=== PATIENT | male | born 1960 | race Caucasian/White ===

== ENCOUNTER 2020-04-11 22:30 | Inpatient (IN) | payer MEDICAID, SELFPAY ==
[2020-04-11 22:44] VITALS: BP 144/87; PULSE 107; RESP 18; TEMP 37.2; O2SAT 99; BMI 27.2
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
--- NOTE | 2020-04-11 23:37 | PC.NURSE ---
Patricia from lab at bedside attempting to get blood for analysis. Pt is very difficult venipuncture due to IV drug use. Both arms with scarring.
[2020-04-12] VITALS (14 sets, daily range): BP systolic 125–153; BP diastolic 67–98; PULSE 70–87; RESP 16–20; TEMP 36.3–37.3; O2SAT 93–97; BMI 31.8
[2020-04-12 00:04] LABS: D Dimer 455 ng/mL (<230)
[2020-04-12 00:05] LABS: Lactate (Lactic Acid) 1.9 mmol/L (0.7-2.1)
[2020-04-12 00:06] LABS: Add Manual Diff / Slide Review NO; Alanine Aminotransferase 20 IU/L (<50); Albumin 3.7 g/dL (3.5-5.0); Alkaline Phosphatase 101 U/L (38-126); Aspartate Aminotransferase 23 IU/L (17-59); Basophils Absolute Auto 100 /uL (0-100); Basophils Percent Auto 1.1 % (0-2); Bilirubin Total 0.1 mg/dL (0.2-1.3); Blood Urea Nitrogen 16 mg/dL (9-20); Calcium 8.9 mg/dL (8.4-10.2); Carbon Dioxide 32 mmol/L (22-32); Chloride 103 mmol/L (98-107); Eosinophils Absolute Auto 200 /uL (0-450); Eosinophils Percent Auto 1.9 % (2-4); Estimated Glomerular Filt Rate > 60.0 mL/min (>60); Globulin 3.6 g/dL (1.7-4.1); Glucose 165 mg/dL (70-100); HEMOLYSIS < 15 (0-50); Hematocrit 33.6 % (41-53); Hemoglobin 10.7 g/dL (13.5-17.5); Lymphocytes Absolute Auto 2100 /uL (1100-4500); Lymphocytes Percent Auto 17.3 % (25-40); Mean Corpuscular HGB Conc 31.9 % (30-36); Mean Corpuscular Hemoglobin 25.3 PG (26-34); Mean Corpuscular Volume 79.3 fL (80-100); Monocytes Absolute Auto 1400 /uL (0-900); Monocytes Percent Auto 11.5 % (3-14); Neutrophils Absolute Auto 8500 /uL (1500-7000); Neutrophils Percent Auto 68.2 % (50-75); Platelet Count 399 X10^3/uL (150-400); Potassium 3.7 mmol/L (3.4-5.1); Red Blood Cell Count 4.24 X10^6/uL (4.5-5.9); Red Cell Distribution Width 16.1 % (11.6-14.8); Sodium 137 mmol/L (137-145); Total Protein 7.3 g/dL (6.3-8.2); White Blood Cell Count 12.4 X10^3/uL (4.5-11.0)
[2020-04-12 00:22] LABS: Procalcitonin 0.22 ng/mL (<0.5)
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
[2020-04-12 03:03] LABS: C-Reactive Protein Quant 2.8 mg/dL (<1.0); Creatine Kinase 87 U/L (55-170)
[2020-04-12 03:18] LABS: Erythrocyte Sedimentation Rate 33 MM/HR (0-15)
[2020-04-12 03:42] LABS: COVID19 -Nasal RAPID Negative (Negative)
[2020-04-12] MEDS: SODIUM CHLORIDE 0.9% 1,000 ML 1000 ML IV (04:44)
[2020-04-12] MEDS: LACTATED RINGERS 1,000 ML 100 ML IV (05:31)
[2020-04-12] MEDS: LORazepam 2 MG/ML INJ 1 MG IV ×2 (05:36→20:00)
[2020-04-12 07:14] LABS: Add Manual Diff / Slide Review NO; Basophils Absolute Auto 100 /uL (0-100); Basophils Percent Auto 1.1 % (0-2); Eosinophils Absolute Auto 400 /uL (0-450); Eosinophils Percent Auto 2.7 % (2-4); Hematocrit 32.1 % (41-53); Hemoglobin 10.5 g/dL (13.5-17.5); Lymphocytes Absolute Auto 2700 /uL (1100-4500); Lymphocytes Percent Auto 19.9 % (25-40); Mean Corpuscular HGB Conc 32.8 % (30-36); Mean Corpuscular Hemoglobin 25.9 PG (26-34); Monocytes Absolute Auto 1600 /uL (0-900); Monocytes Percent Auto 11.5 % (3-14); Neutrophils Absolute Auto 8900 /uL (1500-7000); Neutrophils Percent Auto 64.8 % (50-75); Platelet Count 419 X10^3/uL (150-400); Red Blood Cell Count 4.07 X10^6/uL (4.5-5.9); Red Cell Distribution Width 16.4 % (11.6-14.8); White Blood Cell Count 13.7 X10^3/uL (4.5-11.0)
[2020-04-12 07:19] LABS: Prothrombin Time 11.8 SECONDS (10.1-12.7)
[2020-04-12 07:23] LABS: Alanine Aminotransferase 19 IU/L (<50); Albumin 3.2 g/dL (3.5-5.0); Alkaline Phosphatase 89 U/L (38-126); Aspartate Aminotransferase 24 IU/L (17-59); Bilirubin Total 0.1 mg/dL (0.2-1.3); Bilirubin Unconjugated 0.1 mg/dL (0.0-1.1); Globulin 3.2 g/dL (1.7-4.1); HEMOLYSIS < 15 (0-50); Total Protein 6.4 g/dL (6.3-8.2)
[2020-04-12 07:24] LABS: BUN Creatinine Ratio 18.8 (6-22); Blood Urea Nitrogen 12 mg/dL (9-20); Calcium 8.4 mg/dL (8.4-10.2); Carbon Dioxide 29 mmol/L (22-32); Chloride 105 mmol/L (98-107); Estimated Glomerular Filt Rate > 60.0 mL/min (>60); Glucose 111 mg/dL (70-100); HEMOLYSIS < 15 (0-50); Potassium 3.8 mmol/L (3.4-5.1); Sodium 136 mmol/L (137-145)
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
[2020-04-12 07:40] LABS: Procalcitonin 0.21 ng/mL (<0.5)
--- NOTE | 2020-04-12 07:51 | PC.NURSE ---
Pt measurements of extremities are as follows: Left ankle 25 cm Right ankle 26 cm 1 cm difference Left mid calf 42 cm Right mid calf 41 cm (-1) cm difference L wrist 21 cm R wrist 23 cm 2 cm difference L mid forearm 29 cm R mid forearm 38 cm 9 cm difference L mid bicep 31 cm R mid bicep 37 cm 6 cm difference RUE fingers are cold to touch, LUE fingers warmer to touch. Significant edema to RUE.
[2020-04-12 08:07] LABS: HIV 1 & 2 Ab/Ag 4th Gen Combo NEGATIVE (NEGATIVE)
[2020-04-12] MEDS: VANCOMYCIN 2,000 MG/400 ML PIGGYBACK 200 MG IV (08:10)
[2020-04-12 08:28] LABS: NT-proBNP (BNP-Adult 18+) 175 pg/mL (<125)
--- NOTE | 2020-04-12 09:59 | PC.NURSE ---
Day shift: Pt sleeping in bed after breakfast. Did not awaken to voice. Talked to Dr Carrington about Pt's 2 morning meds and said ok to let Pt sleep. Plan is to wake Pt for lunch or wake up around noon. Will give those meds at that time. No s/s of pain or discomfort. HR 85 per tele. Bed alarm is on. Call light in reach. IV fluids infusing per MAR. Pt did well with eating breakfast this AM.
[2020-04-12] MEDS: METOPROLOL ER 50 MG TABLET PO (10:38)
[2020-04-12] MEDS: ENOXAPARIN 40 MG/0.4 ML SYRINGE SUBCUT (10:38)
--- NOTE | 2020-04-12 10:44 | PC.NURSE ---
Day shift: Pt awake to void and was given PO Metoprolol and the Lovenox injection (at 1040). Tolerated both well.
--- NOTE | 2020-04-12 10:48 | PC.NURSE ---
Day shift: Pt back in bed w/ no c/o pain or discomfort. He his asleep now. Call light in reach and bed alarm is on.
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
[2020-04-12 10:55] LABS: Bacteria Urine None Seen; RBC Urine None Seen (0-5/HPF); WBC Urine None Seen (0-5/HPF)
[2020-04-12 11:17] LABS: Appearance Urine UA CLEAR; Bilirubin Urine UA NEGATIVE (NEGATIVE); Color Urine UA YELLOW; Glucose Urine UA NEGATIVE (Negative); Ketones Urine UA NEGATIVE (NEGATIVE); Leukocyte Esterase Urine UA NEGATIVE (NEGATIVE); Nitrite Urine UA NEGATIVE (Negative); Occult Blood Urine UA NEGATIVE (Negative); Protein Urine UA NEGATIVE (Negative); Specific Gravity Urine UA <=1.005 (1.000-1.035); Urobilinogen Urine UA 0.2 E.U./dL (0.2); pH Urine UA 6.5 (4.5-8.0)
[2020-04-12 11:28] LABS: Culture Indicated Urine Cult Not Indicated; Urine Comments Microscopic Normal
--- NOTE | 2020-04-12 16:09 | CM.DANOTE ---
DCP/Brief: Unable to do GRAPHIC PRODUCTION ARTIST consult/assessment today. RN and provider report that patient has been sleeping all day. Unable to easily arouse for assessment. Patient is a 60yr old male admitted to [facility] with right swollen arm. Provider notes indicate that swelling do to IVDU. PCP listed is David Yip. Primary payor 1)Commercial? 2)Medicaid. Patient with h/o active heroin use. Per reports patient had heroin on him when admitted. Nursing supervisor sewer maintenance indicates that heroin removed and placed in safe location. Patient unable to assess today due to sleepiness. Spoke with afternoon RN whom reports that the only medication given to patient was at 5:00AM today. Patient administered 1mg of Ativan. GRAPHIC PRODUCTION ARTIST suggested no visitors until appropriate assessment with patient can occur? Patient high risk for using while hospitalized and has high potential to leave AMA. GRAPHIC PRODUCTION ARTIST discussed with provider. No decision made at this time on potential heroin withdrawal measures. P: Pending. RENETTA Clark Discharge Planning/Care Management CM Discharge Assessment Start: 04/12/20 16:06 Freq: Status: Active Protocol: Document 04/12/20 16:06 KJS (Rec: 04/12/20 16:09 KJS [id number]) Discharge Planning Assessment Assigned Surgical Instrument Technician RENETTA Clark Contact Information Unknown Advance Directives? No History Provided By Medical Record Prior Living Arrangements House Household Members friend(s) Independent with ADL's Yes Is patient alert and oriented? No: Unable to assess today. Comment Unknown at this time. Review Status In Process Next Review Type Continued Stay Review
[2020-04-12] MEDS: VANCOMYCIN 1,500 MG/300 ML PIGGYBACK 200 MG IV (16:14)
--- NOTE | 2020-04-12 16:41 | P.PN_ITS ---
Subjective Subjective Date Patient Seen: 04/12/20 Time Patient Seen: 16:41 Exam Vital Signs (past 8 hours): - 04/12/20 10:04 04/12/20 10:38 04/12/20 11:13 Temperature Pulse Rate 85 85 75 Respiratory Rate Blood Pressure Pulse Oximetry 96 04/12/20 11:56 04/12/20 13:17 Temperature 97.8 F Pulse Rate 80 Respiratory Rate 20 Blood Pressure 128/67 Pulse Oximetry 95 96 Oxygen Delivery Method Room Air Oxygen Flow Rate 0 Objective Labs Result Diagrams: 04/12/20 06:50 04/12/20 06:50 Labs: Laboratory Results - last 24 hr 04/11/20 04/11/20 04/11/20 23:45 23:45 23:45 WBC 12.4 H RBC 4.24 L Hgb 10.7 L Hct 33.6 L MCV 79.3 L MCH 25.3 L MCHC 31.9 RDW 16.1 H Plt Count 399 Neut % (Auto) 68.2 Lymph % (Auto) 17.3 L [place] % (Auto) 11.5 Eos % (Auto) 1.9 L Baso % (Auto) 1.1 Neut # (Auto) 8500 H Lymph # (Auto) 2100 [place] # (Auto) 1400 H Eos # (Auto) 200 Baso # (Auto) 100 ESR PT INR D-Dimer Sodium 137 Potassium 3.7 Chloride 103 Carbon Dioxide 32 BUN 16 Creatinine 0.80 Estimated GFR > 60.0 BUN/Creatinine Ratio 20.0 Glucose 165 H Lactate 1.9 Calcium 8.9 Total Bilirubin 0.1 L Conjugated Bilirubin Unconjugated Bilirubin AST 23 ALT 20 Alkaline Phosphatase 101 Total Creatine Kinase C-Reactive Protein NT-Pro-B Natriuret Pep Total Protein 7.3 Albumin 3.7 Globulin 3.6 Albumin/Globulin Ratio 1.0 Procalcitonin 0.22 Urine Color Urine Appearance Urine pH Ur Specific [place] Urine Protein Urine Glucose (UA) Urine Ketones Urine Occult Blood Urine Nitrate Urine Bilirubin Urine Urobilinogen Ur Leukocyte Esterase Urine RBC Urine WBC Urine Bacteria Ur Culture Indicated? Micro UA Comment SARS-CoV-2 (PCR) HIV 1&2 Ab/P24 Ag 4thGn 04/11/20 04/11/20 04/11/20 23:45 23:45 23:45 WBC RBC Hgb Hct MCV MCH MCHC RDW Plt Count Neut % (Auto) Lymph % (Auto) [place] % (Auto) Eos % (Auto) Baso % (Auto) Neut # (Auto) Lymph # (Auto) [place] # (Auto) Eos # (Auto) Baso # (Auto) ESR 33 H PT INR D-Dimer 455 H Sodium Potassium Chloride Carbon Dioxide BUN Creatinine Estimated GFR BUN/Creatinine Ratio Glucose Lactate Calcium Total Bilirubin Conjugated Bilirubin Unconjugated Bilirubin AST ALT Alkaline Phosphatase Total Creatine Kinase 87 C-Reactive Protein 2.8 H NT-Pro-B Natriuret Pep Total Protein Albumin Globulin Albumin/Globulin Ratio Procalcitonin Urine Color Urine Appearance Urine pH Ur Specific [place] Urine Protein Urine Glucose (UA) Urine Ketones Urine Occult Blood Urine Nitrate Urine Bilirubin Urine Urobilinogen Ur Leukocyte Esterase Urine RBC Urine WBC Urine Bacteria Ur Culture Indicated? Micro UA Comment SARS-CoV-2 (PCR) HIV 1&2 Ab/P24 Ag 4thGn 04/12/20 04/12/20 04/12/20 03:19 06:50 06:50 WBC 13.7 H RBC 4.07 L Hgb 10.5 L Hct 32.1 L MCV 79.0 L MCH 25.9 L MCHC 32.8 RDW 16.4 H Plt Count 419 H Neut % (Auto) 64.8 Lymph % (Auto) 19.9 L [place] % (Auto) 11.5 Eos % (Auto) 2.7 Baso % (Auto) 1.1 Neut # (Auto) 8900 H Lymph # (Auto) 2700 [place] # (Auto) 1600 H Eos # (Auto) 400 Baso # (Auto) 100 ESR PT 11.8 INR 1.0 D-Dimer Sodium Potassium Chloride Carbon Dioxide BUN Creatinine Estimated GFR BUN/Creatinine Ratio Glucose Lactate Calcium Total Bilirubin Conjugated Bilirubin Unconjugated Bilirubin AST ALT Alkaline Phosphatase Total Creatine Kinase C-Reactive Protein NT-Pro-B Natriuret Pep Total Protein Albumin Globulin Albumin/Globulin Ratio Procalcitonin Urine Color Urine Appearance Urine pH Ur Specific [place] Urine Protein Urine Glucose (UA) Urine Ketones Urine Occult Blood Urine Nitrate Urine Bilirubin Urine Urobilinogen Ur Leukocyte Esterase Urine RBC Urine WBC Urine Bacteria Ur Culture Indicated? Micro UA Comment SARS-CoV-2 (PCR) Negative HIV 1&2 Ab/P24 Ag 4thGn 04/12/20 04/12/20 04/12/20 06:50 06:50 06:50 WBC RBC Hgb Hct MCV MCH MCHC RDW Plt Count Neut % (Auto) Lymph % (Auto) [place] % (Auto) Eos % (Auto) Baso % (Auto) Neut # (Auto) Lymph # (Auto) [place] # (Auto) Eos # (Auto) Baso # (Auto) ESR PT INR D-Dimer Sodium 136 L Potassium 3.8 Chloride 105 Carbon Dioxide 29 BUN 12 Creatinine 0.64 L Estimated GFR > 60.0 BUN/Creatinine Ratio 18.8 Glucose 111 H Lactate Calcium 8.4 Total Bilirubin 0.1 L Conjugated Bilirubin 0.0 Unconjugated Bilirubin 0.1 AST 24 ALT 19 Alkaline Phosphatase 89 Total Creatine Kinase C-Reactive Protein NT-Pro-B Natriuret Pep Total Protein 6.4 Albumin 3.2 L Globulin 3.2 Albumin/Globulin Ratio 1.0 Procalcitonin 0.21 Urine Color Urine Appearance Urine pH Ur Specific [place] Urine Protein Urine Glucose (UA) Urine Ketones Urine Occult Blood Urine Nitrate Urine Bilirubin Urine Urobilinogen Ur Leukocyte Esterase Urine RBC Urine WBC Urine Bacteria Ur Culture Indicated? Micro UA Comment SARS-CoV-2 (PCR) HIV 1&2 Ab/P24 Ag 4thGn Negative 04/12/20 04/12/20 06:50 10:42 WBC RBC Hgb Hct MCV MCH MCHC RDW Plt Count Neut % (Auto) Lymph % (Auto) [place] % (Auto) Eos % (Auto) Baso % (Auto) Neut # (Auto) Lymph # (Auto) [place] # (Auto) Eos # (Auto) Baso # (Auto) ESR PT INR D-Dimer Sodium Potassium Chloride Carbon Dioxide BUN Creatinine Estimated GFR BUN/Creatinine Ratio Glucose Lactate Calcium Total Bilirubin Conjugated Bilirubin Unconjugated Bilirubin AST ALT Alkaline Phosphatase Total Creatine Kinase C-Reactive Protein NT-Pro-B Natriuret Pep 175 H Total Protein Albumin Globulin Albumin/Globulin Ratio Procalcitonin Urine Color Yellow Urine Appearance Clear Urine pH 6.5 Ur Specific [place] <=1.005 Urine Protein Negative Urine Glucose (UA) Negative Urine Ketones Negative Urine Occult Blood Negative Urine Nitrate Negative Urine Bilirubin Negative Urine Urobilinogen 0.2 Ur Leukocyte Esterase Negative Urine RBC None seen Urine WBC None seen Urine Bacteria None seen Ur Culture Indicated? Cult not indicated Micro UA Comment Microscopic normal SARS-CoV-2 (PCR) HIV 1&2 Ab/P24 Ag 4thGn [facility] Medical History (Updated 04/12/20 @ 06:00 by KYLE Acevedo) Alcohol abuse Hypertension IVDU (intravenous drug user) Tobacco abuse Surgical History (Updated 04/12/20 @ 06:01 by CARLOS ALBERTO AcevedoXAVI) H/O knee surgery History of appendectomy Previous back surgery Family History (Updated 04/12/20 @ 06:02 by CARLOS ALBERTO AcevedoXAVI) Father Melanoma Mother Diabetes mellitus Social History household members: friend(s) Smoking Status: Current every day smoker alcohol intake: former
[2020-04-12] MEDS: ONDANSETRON 4 MG/2 ML INJ IV (20:00)
[2020-04-12] MEDS: METHADONE 10 MG TABLET 20 MG PO (20:43)
[2020-04-12] MEDS: SODIUM CHLORIDE 0.9% FLUSH 10 ML IV (20:44)
--- NOTE | 2020-04-12 20:45 | P.PN_ITS ---
Subjective Subjective Date Patient Seen: 04/12/20 Time Patient Seen: 16:41 Interval history: Colton Fletcher is a 60-year-old male with heroin abuse admitted with right upper extremity cellulitis. There is improvement in his swelling and overall pain today, however he used just prior to admission as predominantly sleepy throughout the day. He denies overt fevers, chills, chest pain, shortness of breath. He reports improvement in his pain. Exam Vital Signs (past 8 hours): - 04/12/20 13:17 04/12/20 16:45 04/12/20 17:00 Temperature 99.1 F Pulse Rate 82 Respiratory Rate 18 Blood Pressure 125/78 Pulse Oximetry 96 97 97 Oxygen Delivery Method Room Air Oxygen Flow Rate 0 Narrative Exam Narrative: General: Patient is a well-developed, moderately-nourished male in no distress at this time, patient is relaxed and resting quietly sling no signs and symptoms of withdrawal at this time. HEENT: Normocephalic, atraumatic, extraocular muscles intact, oral pharynx is clear and mucous membranes are moist. Neck is supple and symmetric, trachea is midline, no adenopathy, no thyroid enlargement, nontender, no masses palpated. Negative for JVD Chest: Normal AP diameter and contour without kyphoscoliosis, no nasal flaring, retractions, or tachypneic labored Lungs: Auscultation of all lung clarke are clear without adventitious sounds, wheezes, rhonchi, or rales. Cardio: S1 & S2 with regular rate and rhythm without murmur, rubs, or gallops, no carotid bruit, no cardiac pulsations present. Abdomen: Soft nontender, negative for organomegaly, or masses. Bowel sounds are present in all 4 quadrants without guarding or rebound, no CVA tenderness. Musculoskeletal: Muscle strength and tone are equal within normal limits, no deformity, crepitus, effusions, cyanosis, clubbing prsent. Full range of motion intact pedal pulses are normal. see skin. Skin: right arm:Normal range of motion, no clubbing. Neurovascularly intact. Patient has swelling of his right extremity in comparison to the left. bilateral track esparza. Mild warmth, erythema and a burn [place] on his RUE. Neuro: Alert and orientated x3, strength is +5/5 in all extremities, sensation to touch intact, no gross deficits noted of cranial nerves. Psych: Patient has a poorly kept disheveled appearance, appropriate affect, mental status attitude thought context and judgment are appropriate for age. Objective Labs Result Diagrams: 04/12/20 06:50 04/12/20 06:50 Labs: Laboratory Results - last 24 hr 04/11/20 04/11/20 04/11/20 23:45 23:45 23:45 WBC 12.4 H RBC 4.24 L Hgb 10.7 L Hct 33.6 L MCV 79.3 L MCH 25.3 L MCHC 31.9 RDW 16.1 H Plt Count 399 Neut % (Auto) 68.2 Lymph % (Auto) 17.3 L [place] % (Auto) 11.5 Eos % (Auto) 1.9 L Baso % (Auto) 1.1 Neut # (Auto) 8500 H Lymph # (Auto) 2100 [place] # (Auto) 1400 H Eos # (Auto) 200 Baso # (Auto) 100 ESR PT INR D-Dimer Sodium 137 Potassium 3.7 Chloride 103 Carbon Dioxide 32 BUN 16 Creatinine 0.80 Estimated GFR > 60.0 BUN/Creatinine Ratio 20.0 Glucose 165 H Lactate 1.9 Calcium 8.9 Total Bilirubin 0.1 L Conjugated Bilirubin Unconjugated Bilirubin AST 23 ALT 20 Alkaline Phosphatase 101 Total Creatine Kinase C-Reactive Protein NT-Pro-B Natriuret Pep Total Protein 7.3 Albumin 3.7 Globulin 3.6 Albumin/Globulin Ratio 1.0 Procalcitonin 0.22 Urine Color Urine Appearance Urine pH Ur Specific [place] Urine Protein Urine Glucose (UA) Urine Ketones Urine Occult Blood Urine Nitrate Urine Bilirubin Urine Urobilinogen Ur Leukocyte Esterase Urine RBC Urine WBC Urine Bacteria Ur Culture Indicated? Micro UA Comment SARS-CoV-2 (PCR) HIV 1&2 Ab/P24 Ag 4thGn 04/11/20 04/11/20 04/11/20 23:45 23:45 23:45 WBC RBC Hgb Hct MCV MCH MCHC RDW Plt Count Neut % (Auto) Lymph % (Auto) [place] % (Auto) Eos % (Auto) Baso % (Auto) Neut # (Auto) Lymph # (Auto) [place] # (Auto) Eos # (Auto) Baso # (Auto) ESR 33 H PT INR D-Dimer 455 H Sodium Potassium Chloride Carbon Dioxide BUN Creatinine Estimated GFR BUN/Creatinine Ratio Glucose Lactate Calcium Total Bilirubin Conjugated Bilirubin Unconjugated Bilirubin AST ALT Alkaline Phosphatase Total Creatine Kinase 87 C-Reactive Protein 2.8 H NT-Pro-B Natriuret Pep Total Protein Albumin Globulin Albumin/Globulin Ratio Procalcitonin Urine Color Urine Appearance Urine pH Ur Specific [place] Urine Protein Urine Glucose (UA) Urine Ketones Urine Occult Blood Urine Nitrate Urine Bilirubin Urine Urobilinogen Ur Leukocyte Esterase Urine RBC Urine WBC Urine Bacteria Ur Culture Indicated? Micro UA Comment SARS-CoV-2 (PCR) HIV 1&2 Ab/P24 Ag 4thGn 04/12/20 04/12/20 04/12/20 03:19 06:50 06:50 WBC 13.7 H RBC 4.07 L Hgb 10.5 L Hct 32.1 L MCV 79.0 L MCH 25.9 L MCHC 32.8 RDW 16.4 H Plt Count 419 H Neut % (Auto) 64.8 Lymph % (Auto) 19.9 L [place] % (Auto) 11.5 Eos % (Auto) 2.7 Baso % (Auto) 1.1 Neut # (Auto) 8900 H Lymph # (Auto) 2700 [place] # (Auto) 1600 H Eos # (Auto) 400 Baso # (Auto) 100 ESR PT 11.8 INR 1.0 D-Dimer Sodium Potassium Chloride Carbon Dioxide BUN Creatinine Estimated GFR BUN/Creatinine Ratio Glucose Lactate Calcium Total Bilirubin Conjugated Bilirubin Unconjugated Bilirubin AST ALT Alkaline Phosphatase Total Creatine Kinase C-Reactive Protein NT-Pro-B Natriuret Pep Total Protein Albumin Globulin Albumin/Globulin Ratio Procalcitonin Urine Color Urine Appearance Urine pH Ur Specific [place] Urine Protein Urine Glucose (UA) Urine Ketones Urine Occult Blood Urine Nitrate Urine Bilirubin Urine Urobilinogen Ur Leukocyte Esterase Urine RBC Urine WBC Urine Bacteria Ur Culture Indicated? Micro UA Comment SARS-CoV-2 (PCR) Negative HIV 1&2 Ab/P24 Ag 4thGn 04/12/20 04/12/20 04/12/20 06:50 06:50 06:50 WBC RBC Hgb Hct MCV MCH MCHC RDW Plt Count Neut % (Auto) Lymph % (Auto) [place] % (Auto) Eos % (Auto) Baso % (Auto) Neut # (Auto) Lymph # (Auto) [place] # (Auto) Eos # (Auto) Baso # (Auto) ESR PT INR D-Dimer Sodium 136 L Potassium 3.8 Chloride 105 Carbon Dioxide 29 BUN 12 Creatinine 0.64 L Estimated GFR > 60.0 BUN/Creatinine Ratio 18.8 Glucose 111 H Lactate Calcium 8.4 Total Bilirubin 0.1 L Conjugated Bilirubin 0.0 Unconjugated Bilirubin 0.1 AST 24 ALT 19 Alkaline Phosphatase 89 Total Creatine Kinase C-Reactive Protein NT-Pro-B Natriuret Pep Total Protein 6.4 Albumin 3.2 L Globulin 3.2 Albumin/Globulin Ratio 1.0 Procalcitonin 0.21 Urine Color Urine Appearance Urine pH Ur Specific [place] Urine Protein Urine Glucose (UA) Urine Ketones Urine Occult Blood Urine Nitrate Urine Bilirubin Urine Urobilinogen Ur Leukocyte Esterase Urine RBC Urine WBC Urine Bacteria Ur Culture Indicated? Micro UA Comment SARS-CoV-2 (PCR) HIV 1&2 Ab/P24 Ag 4thGn Negative 04/12/20 04/12/20 06:50 10:42 WBC RBC Hgb Hct MCV MCH MCHC RDW Plt Count Neut % (Auto) Lymph % (Auto) [place] % (Auto) Eos % (Auto) Baso % (Auto) Neut # (Auto) Lymph # (Auto) [place] # (Auto) Eos # (Auto) Baso # (Auto) ESR PT INR D-Dimer Sodium Potassium Chloride Carbon Dioxide BUN Creatinine Estimated GFR BUN/Creatinine Ratio Glucose Lactate Calcium Total Bilirubin Conjugated Bilirubin Unconjugated Bilirubin AST ALT Alkaline Phosphatase Total Creatine Kinase C-Reactive Protein NT-Pro-B Natriuret Pep 175 H Total Protein Albumin Globulin Albumin/Globulin Ratio Procalcitonin Urine Color Yellow Urine Appearance Clear Urine pH 6.5 Ur Specific [place] <=1.005 Urine Protein Negative Urine Glucose (UA) Negative Urine Ketones Negative Urine Occult Blood Negative Urine Nitrate Negative Urine Bilirubin Negative Urine Urobilinogen 0.2 Ur Leukocyte Esterase Negative Urine RBC None seen Urine WBC None seen Urine Bacteria None seen Ur Culture Indicated? Cult not indicated Micro UA Comment Microscopic normal SARS-CoV-2 (PCR) HIV 1&2 Ab/P24 Ag 4thGn COUNT INCLUDES [facility] Medical History (Updated 04/12/20 @ 06:00 by KYLE Acevedo) Alcohol abuse Hypertension IVDU (intravenous drug user) Tobacco abuse Surgical History (Updated 04/12/20 @ 06:01 by KYLE Acevedo) H/O knee surgery History of appendectomy Previous back surgery Family History (Updated 04/12/20 @ 06:02 by KYLE Acevedo) Father Melanoma Mother Diabetes mellitus Social History household members: friend(s) Smoking Status: Current every day smoker alcohol intake: former Assessment & Plan Assessment & Plan narrative: 1. Cellulitis Right Forearm, acute, purulent, present on admission likely secondary to IV heroin drug use an injection, - improvingin with initial IV antibiotic therapy, will continue. If no significiant improvement consider imaging. ESR and CRP mildly elevated but not specific for any osteo. Leukocytosis improving and no overt fever since admission. PICC line placed in the ER, follow up blood cultures and remove if po sitive. 2. IV drug use, heroin, acute on chronic, present on admission - start methadone 20 mg if evidence of withdrawal, last use day of admission 3. Hypertension, acute on chronic, uncontrolled, present on admission -started metoprolol on admission, will continue. 4. Tobacco abuse, acute on chronic, present on admission -pack-a-day smoker times 40 years -smoking cessation education provided Code status: Full code COVID PCR: Negative Designated surrogate decision maker:Nava Cabrera (Mother) DVT/VTE prophylaxis: Lovenox 40 mg an SCDs(on Right)
--- NOTE | 2020-04-12 22:12 | PC.NURSE ---
pt was mostly asleep for cynthia shift and he only ambulated when he had to void. pt started vomiting around 1900. pt was medicated with zofran and ativan. notified hospitalist regarding his new COWS score: 23. administered methadone. bed alarm on. safety checks.
[2020-04-13] VITALS (10 sets, daily range): BP systolic 113–144; BP diastolic 67–90; PULSE 56–81; RESP 16–24; TEMP 36.8–37.4; O2SAT 94–96
[2020-04-13] MEDS: ONDANSETRON 4 MG/2 ML INJ IV ×2 (00:34→04:38)
[2020-04-13] MEDS: VANCOMYCIN 1,500 MG/300 ML PIGGYBACK 200 MG IV ×2 (00:34→08:24)
[2020-04-13] MEDS: LORazepam 2 MG/ML INJ 1 MG IV ×2 (00:49→04:38)
--- NOTE | 2020-04-13 01:54 | PC.NURSE ---
Addendum entered by Janet Beasley R.N. 04/13/20 02:58: At approx 0230 this RN became aware of a compromise in the midline site. Neither lumen is flushable. Charge and provider aware. Cleaned and added tegaderm on top for lack of a better dressing. Current COWS 23. Pt agitated and will attempt to hit staff. Original Note: Discussed telemetry order with hospitalist- pt unable to keep telemetry leads on and will pull them off at any given opportunity. Provider okayd to DC cardiac monitoring due to patient's inability to tolerate.
[2020-04-13 03:51] LABS: Add Manual Diff / Slide Review NO; Basophils Absolute Auto 0 /uL (0-100); Eosinophils Absolute Auto 0 /uL (0-450); Hematocrit 31.4 % (41-53); Hemoglobin 10.3 g/dL (13.5-17.5); Lymphocytes Absolute Auto 2100 /uL (1100-4500); Lymphocytes Percent Auto 11.8 % (25-40); Mean Corpuscular HGB Conc 32.7 % (30-36); Mean Corpuscular Hemoglobin 25.6 PG (26-34); Mean Corpuscular Volume 78.3 fL (80-100); Monocytes Absolute Auto 1700 /uL (0-900); Monocytes Percent Auto 9.7 % (3-14); Neutrophils Absolute Auto 13800 /uL (1500-7000); Neutrophils Percent Auto 78.5 % (50-75); Platelet Count 387 X10^3/uL (150-400); Red Blood Cell Count 4.01 X10^6/uL (4.5-5.9); Red Cell Distribution Width 16.3 % (11.6-14.8); White Blood Cell Count 17.6 X10^3/uL (4.5-11.0)
[2020-04-13 03:58] LABS: Alanine Aminotransferase 23 IU/L (<50); Albumin 3.3 g/dL (3.5-5.0); Alkaline Phosphatase 79 U/L (38-126); Aspartate Aminotransferase 26 IU/L (17-59); BUN Creatinine Ratio 15.5 (6-22); Bilirubin Total 0.4 mg/dL (0.2-1.3); Blood Urea Nitrogen 9 mg/dL (9-20); Calcium 8.6 mg/dL (8.4-10.2); Carbon Dioxide 24 mmol/L (22-32); Chloride 106 mmol/L (98-107); Estimated Glomerular Filt Rate > 60.0 mL/min (>60); Globulin 3.3 g/dL (1.7-4.1); Glucose 102 mg/dL (70-100); HEMOLYSIS < 15 (0-50); Sodium 136 mmol/L (137-145); Total Protein 6.6 g/dL (6.3-8.2)
[2020-04-13 04:14] LABS: Procalcitonin 0.13 ng/mL (<0.5)
[2020-04-13] MEDS: hydrOXYzine pamoate 25 MG CAPSULE 50 MG PO (06:11)
[2020-04-13] MEDS: METHADONE 10 MG TABLET 20 MG PO ×3 (06:22→21:43)
[2020-04-13 08:17] LABS: Vancomycin Trough 12.1 ug/mL (10-20)
[2020-04-13] MEDS: VANCOMYCIN TROUGH 1 REQUEST MISC (08:24)
--- NOTE | 2020-04-13 09:04 | PC.NURSE ---
MANAGER OF TRAINING AND DEVELOPMENT/ENGAGEMENT LEAD Note: Pt. is restless and being non-complaint. Unable to communicate with aid on needs. Patient has been encourage to use call light and to not get up on his own. Pt. bed alarm ON at all times. Pt. gets out of bed and pees on floor. Floor has been cleaned up by EDMUNDO. Miguel Notified.
--- NOTE | 2020-04-13 11:08 | PC.NURSE ---
Addendum entered by Anh Moya R.N. 04/13/20 14:49: pt packed up and moved from room 220 to 223 at 1440. pt resting in bed. Original Note: AM shift note. pt alert with voice and stimulation during deep sleep sessions. Oriented to self. Mostly mumbling words with no organization and cursing. Left lower lobe with crackles. Right arm wounds open to arm, pt not tolerating any dressings. Photodocumentation obtained using 's silver camera (and given back to coordinator's desk). Midline was compromised by patient and removed this morning by COLLIN Dao. PIV pulled out by patient around 0950 during Vancomycin infusion (~25ml remaining). COWS (clinical opiate withdrawl scale) performed this morning at start of shift (hard copy in pt's chart) result= 27 (moderately severe). pt incontinent and voids all over floor (and staff). Warm blankets seems to calm pt down. pt resting in bed with bed alarm on most sensitive setting.
--- NOTE | 2020-04-13 11:55 | PC.NURSE ---
PIV compromised around 0950 (pt pulled) during vanco infusion, ~25-50mL remaining in bag. Midline compromised by patient during another shift and DC'ed by COLLIN Dao this am due to infection precautions. Dr. Carrington made aware and plans to changing pt to PO ABX.
[2020-04-13] MEDS: DOXYCYCLINE HYCLATE 100 MG TABLET PO ×2 (15:13→21:44)
[2020-04-13] MEDS: ENOXAPARIN 40 MG/0.4 ML SYRINGE SUBCUT (15:14)
--- NOTE | 2020-04-13 15:43 | P.PN_ITS ---
Subjective Subjective Date Patient Seen: 04/13/20 Time Patient Seen: 15:43 Interval history: Colton Fletcher is a 60-year-old male with heroin abuse admitted with right upper extremity cellulitis. There is improvement in his swelling and overall pain today, overnight he was combative and nauseous and vomiting from his heroin withdrawal. Started on methadone, now up to 20 mg TID with improvement with ativan. He ripped out his midline, no IV access but he has had significant improvement in his cellulitis. will transition to oral antibiotics that include MRSA coverage to see if improvement in leukocytosis, if so, likely discharge tomorrow if his withdrawal symptoms are improved. Exam Vital Signs (past 8 hours): - 04/13/20 10:48 04/13/20 12:15 Temperature 98.9 F Pulse Rate 81 Respiratory Rate 19 Blood Pressure 127/87 Pulse Oximetry 95 96 Oxygen Delivery Method Room Air Oxygen Flow Rate 0 Narrative Exam Narrative: General: Patient is a well-developed, moderately-nourished male in no distress at this time, patient is relaxed and resting quietly sling no signs and symptoms of withdrawal at this time. HEENT: Normocephalic, atraumatic, extraocular muscles intact, oral pharynx is clear and mucous membranes are moist. Neck is supple and symmetric, trachea is midline, no adenopathy, no thyroid enlargement, nontender, no masses palpated. Negative for JVD Chest: Normal AP diameter and contour without kyphoscoliosis, no nasal flaring, retractions, or tachypneic labored Lungs: Auscultation of all lung clarke are clear without adventitious sounds, wheezes, rhonchi, or rales. Cardio: S1 & S2 with regular rate and rhythm without murmur, rubs, or gallops, no carotid bruit, no cardiac pulsations present. Abdomen: Soft nontender, negative for organomegaly, or masses. Bowel sounds are present in all 4 quadrants without guarding or rebound, no CVA tenderness. Musculoskeletal: Muscle strength and tone are equal within normal limits, no deformity, crepitus, effusions, cyanosis, clubbing prsent. Full range of motion intact pedal pulses are normal. see skin. Skin: right arm:Normal range of motion, no clubbing. Neurovascularly intact. Patient has swelling of his right extremity in comparison to the left, though improving. bilateral track esparza. improved erythema. Neuro: Alert and orientated x3, strength is +5/5 in all extremities, sensation to touch intact, no gross deficits noted of cranial nerves. Psych: Patient has a poorly kept disheveled appearance, appropriate affect, mental status attitude thought context and judgment are appropriate for age. Objective Labs Result Diagrams: 04/13/20 03:40 04/13/20 03:40 Labs: Laboratory Results - last 24 hr 04/13/20 04/13/20 04/13/20 03:40 03:40 07:40 WBC 17.6 H RBC 4.01 L Hgb 10.3 L Hct 31.4 L MCV 78.3 L MCH 25.6 L MCHC 32.7 RDW 16.3 H Plt Count 387 Neut % (Auto) 78.5 H Lymph % (Auto) 11.8 L [place] % (Auto) 9.7 Eos % (Auto) 0.0 L Baso % (Auto) 0.0 Neut # (Auto) 69151 H Lymph # (Auto) 2100 [place] # (Auto) 1700 H Eos # (Auto) 0 Baso # (Auto) 0 Sodium 136 L Potassium 4.0 Chloride 106 Carbon Dioxide 24 BUN 9 Creatinine 0.58 L Estimated GFR > 60.0 BUN/Creatinine Ratio 15.5 Glucose 102 H Calcium 8.6 Total Bilirubin 0.4 AST 26 ALT 23 Alkaline Phosphatase 79 Total Protein 6.6 Albumin 3.3 L Globulin 3.3 Albumin/Globulin Ratio 1.0 Procalcitonin 0.13 Vancomycin Trough 12.1 PFSH Medical History (Updated 04/12/20 @ 06:00 by KYLE Acevedo) Alcohol abuse Hypertension IVDU (intravenous drug user) Tobacco abuse Surgical History (Updated 04/12/20 @ 06:01 by KYLE Acevedo) H/O knee surgery History of appendectomy Previous back surgery Family History (Updated 04/12/20 @ 06:02 by KYLE Acevedo) Father Melanoma Mother Diabetes mellitus Social History household members: friend(s) Smoking Status: Current every day smoker alcohol intake: former Assessment & Plan Assessment & Plan narrative: 1. Cellulitis Right Forearm, acute, purulent, present on admission likely secondary to IV heroin drug use an injection, - improving with initial IV antibiotic therapy, however given withdrawal he removed his midline overnight. Will start on oral antibiotic therapy and observe trend in leukocytosis and make sure erythema and cellulitis does not return. 2. IV drug use, heroin withdrawal, present on admission - started methadone 20 mg with continued symptoms of withdrawal, increased to 20 TID with improvement in symptoms. Continue this with oral ativan. 3. Hypertension, acute on chronic, uncontrolled, present on admission -started metoprolol on admission, will continue. 4. Tobacco abuse, acute on chronic, present on admission -pack-a-day smoker times 40 years -smoking cessation education provided Code status: Full code COVID PCR: Negative Designated surrogate decision maker:Nava Cabrera (Mother) DVT/VTE prophylaxis: Lovenox 40 mg an SCDs(on Right)
[2020-04-13] MEDS: LORazepam 1 MG TABLET 2 MG PO ×2 (16:12→20:06)
--- NOTE | 2020-04-13 16:29 | PC.NURSE ---
pt starting to become restless in bed, administered ativan 2mg PO.
[2020-04-14] VITALS (13 sets, daily range): BP systolic 129–148; BP diastolic 73–82; PULSE 52–70; RESP 16–20; TEMP 36.3–37.6; O2SAT 96–98
[2020-04-14] MEDS: LORazepam 1 MG TABLET 2 MG PO (02:12)
--- NOTE | 2020-04-14 02:50 | PC.NURSE ---
Pt still impulsive, left bed to urinate without alerting staff. Able to obtain urinal in time. Pt refused to participate in neurological assessment. Will only state name and nod yes or no. Pt agreeable to ativan. COWS score at time of assessment was 5 (01:00) and at time of ativan administration was 9 (02:00). Results recorded on hard copy and included in patient's physical chart. Pt's daughter was contacted. Daughter (Dina [phone]) requested update and informed this RN that she would like a rec to a methadone clinic for her father, as they won't take him unless he's well. This information will be passed on to the cyanide case hardener.
[2020-04-14 07:15] LABS: Add Manual Diff / Slide Review NO; Basophils Absolute Auto 100 /uL (0-100); Basophils Percent Auto 0.6 % (0-2); Eosinophils Absolute Auto 100 /uL (0-450); Eosinophils Percent Auto 0.4 % (2-4); Hematocrit 33.6 % (41-53); Hemoglobin 10.8 g/dL (13.5-17.5); Lymphocytes Absolute Auto 2700 /uL (1100-4500); Lymphocytes Percent Auto 19.7 % (25-40); Mean Corpuscular Hemoglobin 25.4 PG (26-34); Mean Corpuscular Volume 79.2 fL (80-100); Monocytes Absolute Auto 1700 /uL (0-900); Monocytes Percent Auto 12.3 % (3-14); Neutrophils Absolute Auto 9100 /uL (1500-7000); Platelet Count 360 X10^3/uL (150-400); Red Blood Cell Count 4.24 X10^6/uL (4.5-5.9); Red Cell Distribution Width 16.5 % (11.6-14.8); White Blood Cell Count 13.6 X10^3/uL (4.5-11.0)
[2020-04-14 07:22] LABS: Alanine Aminotransferase 22 IU/L (<50); Albumin 3.4 g/dL (3.5-5.0); Albumin Globulin Ratio 0.9 (1.0-2.8); Alkaline Phosphatase 80 U/L (38-126); Aspartate Aminotransferase 24 IU/L (17-59); BUN Creatinine Ratio 19.4 (6-22); Bilirubin Total 0.4 mg/dL (0.2-1.3); Blood Urea Nitrogen 13 mg/dL (9-20); Calcium 8.8 mg/dL (8.4-10.2); Carbon Dioxide 25 mmol/L (22-32); Chloride 108 mmol/L (98-107); Estimated Glomerular Filt Rate > 60.0 mL/min (>60); Globulin 3.6 g/dL (1.7-4.1); Glucose 74 mg/dL (70-100); HEMOLYSIS < 15 (0-50); Potassium 3.9 mmol/L (3.4-5.1); Sodium 137 mmol/L (137-145)
[2020-04-14 07:51] LABS: Procalcitonin 0.09 ng/mL (<0.5)
[2020-04-14] MEDS: METOPROLOL ER 50 MG TABLET PO (09:15)
[2020-04-14] MEDS: ENOXAPARIN 40 MG/0.4 ML SYRINGE SUBCUT (09:16)
[2020-04-14] MEDS: DOXYCYCLINE HYCLATE 100 MG TABLET PO (09:16)
--- NOTE | 2020-04-14 14:28 | PC.NURSE ---
VSS. A&O to self only, thought he was in Interior.. Patient refused to respond to any other questions from this keno writer/runner today when assessing his level of awareness, pain, or discomfort. He arouses slightly to verbal commands but only mumbles in response. He sat up once to take his medications and then proceeded to become agitated before laying back down. Has been sleeping this entire shift. Did not eat his meals. Was given oral care and shower cap. Patient is compulsive and stood up on own once and started urinating all over the floor, was escorted to the restroom. Refuses SCDs. Bed alarm on, frequent checks. Call light within reach.
--- NOTE | 2020-04-14 16:20 | CM.SWNOTE ---
[employer] Note Patient remains too somnolent today for [employer] CD Assessment. Following closely and will attempt tomorrow if patient remains here. Updated COLLIN JW
--- NOTE | 2020-04-14 17:40 | P.DS_ITS ---
History of Present Illness History of Present Illness Date Patient Seen: 04/14/20 Time Patient Seen: 17:40 Chief complaint: right arm swollen,says IV drug user Discharge Providers Provider Date of admission: 04/12/20 02:29 Discharge Date: 04/14/20 Consults: 04/12/20 05:47 Consult to Wound Care Routine Comment: Consulting Provider: [facility] 04/12/20 07:16 Consult to [employer] - District Sales Coordinator Routine Comment: [employer] Consult: Substance Abuse Assess Discharge provider: Asael Carrington DO Summary Hospital Course Discharge Diagnosis: Please see hospital course by problem list noted below. Hospital Course: 60 year old male with PMH of daily IV heroin use presented to the ER with RUE cellulitis, improved with antibiotic therapy. Course complicated by heroin withdrawal managed with methadone and ativan for agitation. Discharged home with recommendations for 7 additional days of doxycycline and follow up wit h PCP and ideally a methadone treatment facility. 1. Cellulitis Right Forearm, acute, purulent, present on admission likely secondary to IV heroin drug use an injection, - improved with initial IV antibiotic therapy including vancomyin. Cultures grew MRSA sensitive to doxycline. With his heroin withdrawal he removed his midline overnight and was started oral antibiotic therapy with continued im provement in leukocytosis and erythema. Erythema nearly resolved on day of discharge as was his swelling. - he had a few doses of hydrocodone due to the pain. Discontinued on the day of discharge without complaints of pain. 2. IV drug use, heroin withdrawal, present on admission - started methadone 20 mg with continued symptoms of withdrawal, increased to 20 TID with improvement in symptoms on HD#2. This was stopped the following day due to somnolence although I do not suspect that was due to the methadone. Later in the day, he was well appearing, alert and interactive and agreeable to discharge home given significant improvement in swelling. - Recommended he seek out a methadone treatment center after discharge to assist. [employer] consultation appreciated. 3. Hypertension, acute on chronic, uncontrolled, present on admission - continued home metoprolol. which I recommend he continue as an outpatient. 4. Tobacco abuse, acute on chronic, present on admission -pack-a-day smoker times 40 years -smoking cessation education provided Exam Vital Signs (past 8 hours): - 04/14/20 10:38 04/14/20 12:00 04/14/20 12:52 Temperature 99.6 F Pulse Rate 54 L 60 Respiratory Rate 18 Blood Pressure 140/76 139/82 Pulse Oximetry 96 98 98 Oxygen Delivery Method Room Air Oxygen Flow Rate 0 Narrative Exam Narrative: General: Patient is a well-developed, moderately-nourished male in no distress at this time, patient is relaxed eating dinner in no acute distress. HEENT: Normocephalic, atraumatic, extraocular muscles intact, oral pharynx is clear and mucous membranes are moist. Neck is supple and symmetric, trachea is midline, no adenopathy, no thyroid enlargement, nontender, no masses palpated. Negative for JVD Chest: Normal AP diameter and contour without kyphoscoliosis, no nasal flaring, retractions, or tachypneic labored Lungs: Auscultation of all lung clarke are clear without adventitious sounds, wheezes, rhonchi, or rales. Cardio: S1 & S2 with regular rate and rhythm without murmur, rubs, or gallops, no carotid bruit, no cardiac pulsations present. Abdomen: Soft nontender, negative for organomegaly, or masses. Bowel sounds are present in all 4 quadrants without guarding or rebound, no CVA tenderness. Musculoskeletal: Muscle strength and tone are equal within normal limits, no deformity, crepitus, effusions, cyanosis, clubbing prsent. Full range of motion intact pedal pulses are normal. see skin. Skin: right arm:Normal range of motion, no clubbing. Neurovascularly intact. Patient has swelling of his right extremity in comparison to the left, though markedly improved. bilateral track esparza. Erythema has resolved. abrasions noted to R forearm as well. Neuro: Alert and orientated x3, strength is +5/5 in all extremities, sensation to touch intact, no gross deficits noted of cranial nerves. Psych: Patient has a poorly kept disheveled appearance, appropriate affect, m ental status attitude thought context and judgment are appropriate for age. Objective Labs Result Diagrams: 04/14/20 06:45 04/14/20 06:45 Labs: Laboratory Results - last 24 hr 04/14/20 04/14/20 06:45 06:45 WBC 13.6 H RBC 4.24 L Hgb 10.8 L Hct 33.6 L MCV 79.2 L MCH 25.4 L MCHC 32.0 RDW 16.5 H Plt Count 360 Neut % (Auto) 67.0 Lymph % (Auto) 19.7 L [place] % (Auto) 12.3 Eos % (Auto) 0.4 L Baso % (Auto) 0.6 Neut # (Auto) 9100 H Lymph # (Auto) 2700 [place] # (Auto) 1700 H Eos # (Auto) 100 Baso # (Auto) 100 Sodium 137 Potassium 3.9 Chloride 108 H Carbon Dioxide 25 BUN 13 Creatinine 0.67 Estimated GFR > 60.0 BUN/Creatinine Ratio 19.4 Glucose 74 Calcium 8.8 Total Bilirubin 0.4 AST 24 ALT 22 Alkaline Phosphatase 80 Total Protein 7.0 Albumin 3.4 L Globulin 3.6 Albumin/Globulin Ratio 0.9 L Procalcitonin 0.09 PFSH Medical History (Updated 04/12/20 @ 06:00 by CARLOS ALBERTO Acevedo-XAVI) Alcohol abuse Hypertension IVDU (intravenous drug user) Tobacco abuse Surgical History (Updated 04/12/20 @ 06:01 by KYLE Acevedo) H/O knee surgery History of appendectomy Previous back surgery Family History (Updated 04/12/20 @ 06:02 by CARLOS ALBERTO Acevedo-XAVI) Father Melanoma Mother Diabetes mellitus Social History household members: friend(s) Smoking Status: Current every day smoker alcohol intake: former Discharge Plan Discharge Plan Patient Disposition: Home Provider Discharge Comment: You were admitted to the hospital with R arm cellulitis. You improved with antibiotics. I recommend an additional 7 days of doxycycline at home. Please follow up with a PCP and I highly recommend you seek treatment with a methadone clinic. Discharge orders & Medications Prescriptions: New doxycycline hyclate 100 mg tablet 100 mg PO BID 7 Days Qty: 14 RF: 0 Continued Metoprolol Succinate (#TOPROL XL) 100 mg tablet 100 mg PO Q DAY Qty: 0 RF: 0 trazodone 50 MG tablet 50 mg PO DAILY Qty: 0 RF: 0 Discontinued sulfamethoxazole-trimethoprim 800 MG/160 MG tablet 1 tab PO BID 7 Days Qty: 0 RF: 0 Discharge Health Status Multidrug resistant organism: MRSA Diet/Activity/Treatments Diet: Diet as Tolerated Activity: As tolerated
--- NOTE | 2020-04-14 21:01 | PC.NURSE ---
Evening Shift/Discharge Note- Patient discharged home per Dr. Carrington. Discharge instructions and education reviewed with patient and signed. Patient unable to reach anyone to pick him up. Charged patients cell phone for him to find phone numbers, but then patient stated I dont known the password. Patient did provide numbers for his mother and his girlfriend, both numbers incorrect or disconnected. Taxi voucher obtained for patient. Patient assisted with dressing and packiung up personal belongings. Patient left via wheelchair [id number] personal items at 2044.
[2020-04-18 11:36] LABS: HBsAg Screen Negative (Negative); Hepatitis A Antibody IgM Negative (Negative); Hepatitis B Core Antibody IgM Negative (Negative); Hepatitis C Antibody >11.0 s/co ratio (0.0-0.9); Hepatitis C Quant HCV Not Detected IU/mL (.)
== END 2020-04-14 20:45 | disposition home or self-care (01) | DRG 603 ==
LOC: ED 04-12 02:29 → AC 04-12 02:29
PROVIDERS: Admitting Provider Nurse Practitioner Family; Emergency Provider Emergency Medicine; Referring Provider Emergency Medicine; Visit Provider Nurse Practitioner Family
DX: L03.113 Cellulitis of right upper limb (principal); F11.13 Opioid abuse with withdrawal; T22.211A Burn of second degree of right forearm, initial encounter; T31.0 Burns involving less than 10% of body surface; I10 Essential (primary) hypertension; F17.210 Nicotine dependence, cigarettes, uncomplicated; F12.90 Cannabis use, unspecified, uncomplicated; X16.XXXA Contact with hot heating appliances, radiators and pipes, initial encounter; Z20.822 Contact with and (suspected) exposure to COVID-19
CPT/HCPCS: 36415; 36592; 80048; 80053; 80074; 80076; 80202; 81001; 82550; 83605; 83880; 84145; 85025; 85379; 85610; 85651; 86140; 87040; 87070; 87077; 87147; 87186; 87205; 87389; 87522; 87635; 93005; 93971; 99284; C9803; J1642; J1650; J2060; J2405

== ENCOUNTER 2021-10-12 11:56 | Emergency (ER) | payer OTHER, MEDICAID, SELFPAY ==
[2020-04-12 05:47] VITALS: BMI 31.8
[2021-10-12] VITALS (8 sets, daily range): BP systolic 108–127; BP diastolic 64–81; PULSE 74–81; RESP 13–17; TEMP 36.7; O2SAT 96–98; BMI 25.8
--- NOTE | 2021-10-12 12:09 | ED_ITS ---
HPI - General Adult General Chief complaint: Altered Mental Status Stated complaint: Confusion,drowsy from didwalic Time Seen by Provider: 10/12/21 12:00 Source: patient and EMS Mode of arrival: EMS History of Present Illness HPI narrative: Patient is a 61-year-old male. Was at a local methadone clinic today. He states he did get dose with methadone today. He was brought to the emergency department by EMS because the clinic thought that he was drowsy. He received no Narcan or other intervention prior to arrival. Patient states he ?does not know ?if he used any illicit drugs this morning. He does state that he did take the methadone. He has no specific complaints. He does not know specifically why he is here in the emergency department. He is alert to person and place Related Data Home Medications Medication Instructions Recorded Confirmed Metoprolol Succinate (#TOPROL XL) 100 mg PO Q DAY ##0 08/10/10 04/12/20 trazodone 50 mg tablet 50 mg PO DAILY ##0 02/27/12 04/12/20 Allergies Allergy/AdvReac Type Severity Reaction Status Date / Time BEES Allergy Unknown Uncoded 10/12/21 12:08 Review of Systems Constitutional Comments: Denies headaches Cardiovascular Comments: Denies chest pain Respiratory Comments: Denies shortness of breath Gastrointestinal Comments: Denies abdominal pain Neurologic Comments: Confused per clinic Hematologic/Lymphatic On Anticoagulants: No Patient History Medical History Alcohol abuse Hypertension IVDU (intravenous drug user) Tobacco abuse Surgical History (Updated 04/12/20 @ 06:01 by KYLE Acevedo) H/O knee surgery History of appendectomy Previous back surgery Family History (Updated 04/12/20 @ 06:02 by KYLE Acevedo) Father Melanoma Mother Diabetes mellitus Social History household members: friend(s) Smoking Status: Current every day smoker alcohol intake: former Smoking Status: Current every day smoker alcohol intake frequency: 0-2 drinks per day Substance Use Type: marijuana, heroin, IV drugs and methamphetamine Exam Initial Vital Signs Initial Vital Signs: Vital Signs Pulse Rate 81 10/12/21 12:01 Blood Pressure 125/81 10/12/21 12:01 Pulse Oximetry 97 10/12/21 12:01 Oxygen Delivery Method 10/12/21 12:01 HENMT Head: normal to inspection and normocephalic Resp Effort & Inspection: normal respiratory effort Auscultation: clear to auscultation bilaterally Cardio Rate: regular rate Rhythm: regular rhythm GI Inspection: normal to inspection and non-distended Skin Other: Multiple track esparza bilateral upper extremities Neuro Speech: speech normal Other: Alert to person and place and year and month. Is somewhat drowsy but is easily arousable. Extrem Other: Track esparza bilateral upper extremities without signs of infection Scores GCS Tom coma scale eye opening: Spontaneous Tom coma scale verbal response: Orientated Tom coma scale motor response: Obey commands Tom coma scale total score: 15 Course Orders Ordered: ED Orders 10/12/21 12:10 CT head/brain wo con Stat EKG-12 Lead Stat 10/12/21 12:32 Basic Metabolic Panel Stat Complete Blood Count AUTO DIFF Stat Ethanol (ETOH) Stat Discontinued Medications Sodium Chloride (Normal Saline 0.9%) 1,000 mls @ 1,000 mls/hr IV BOLUS ONE Stop: 10/12/21 13:08 Last Admin: 10/12/21 14:38 Dose: Not Given Documented By: AT Naloxone HCl (Naloxone 4 Mg Nasal [place]) 4 mg MISC SEEINSTR ONE Stop: 10/12/21 14:21 Last Admin: 10/12/21 14:39 Dose: 4 mg Documented By: AT Vital Signs Vital signs: Vital Signs - 8 hr 10/12/21 12:06 10/12/21 12:01 10/12/21 12:01 Temperature 98.0 F Pulse Rate 80 81 Respiratory Rate 16 Blood Pressure 125/81 125/81 Pulse Oximetry 98 97 Oxygen Delivery Method Room Air Room Air 10/12/21 12:30 10/12/21 12:30 10/12/21 13:00 Temperature Pulse Rate 78 Respiratory Rate 17 Blood Pressure 108/64 114/68 Pulse Oximetry 98 Oxygen Delivery Method 10/12/21 13:00 10/12/21 13:30 10/12/21 14:00 Temperature Pulse Rate 74 75 Respiratory Rate 15 17 Blood Pressure 110/65 Pulse Oximetry 96 97 Oxygen Delivery Method Room Air 10/12/21 14:00 10/12/21 14:23 10/12/21 14:23 Temperature Pulse Rate 75 78 Respiratory Rate 14 15 Blood Pressure 127/73 Pulse Oximetry 96 98 Oxygen Delivery Method Room Air 10/12/21 14:30 10/12/21 14:30 Temperature Pulse Rate 77 Respiratory Rate 13 Blood Pressure 125/72 Pulse Oximetry 97 Oxygen Delivery Method Medical Decision Making Lab Data Lab results reviewed: Yes I reviewed the patient's lab results. Result diagrams: 10/12/21 12:32 10/12/21 12:32 Labs: Lab Results 10/12/21 10/12/21 Range/Units 12:32 12:32 WBC 9.2 (4.5-11.0) X10^3/uL RBC 4.57 (4.5-5.9) X10^6/uL Hgb 12.6 L (13.5-17.5) g/dL Hct 37.2 L (41-53) % MCV 81.5 (80-100) fL MCH 27.5 (26-34) PG MCHC 33.8 (30-36) % RDW 15.9 H (11.6-14.8) % Plt Count 352 (150-400) X10^3/uL Neut % (Auto) 66.8 (50-75) % Lymph % (Auto) 19.3 L (25-40) % Story % (Auto) 10.8 (3-14) % Eos % (Auto) 2.3 (2-4) % Baso % (Auto) 0.8 (0-2) % Neut # (Auto) 6200 (0311-6144) /uL Lymph # (Auto) 1800 (7954-9298) /uL Story # (Auto) 1000 H (0-900) /uL Eos # (Auto) 200 (0-450) /uL Baso # (Auto) 100 (0-100) /uL Sodium 137 (137-145) mmol/L Potassium 5.0 (3.4-5.1) mmol/L Chloride 104 (98-107) mmol/L Carbon Dioxide 27 (22-32) mmol/L BUN 23 H (9-20) mg/dL Creatinine 0.84 (0.66-1.25) mg/dL Estimated GFR > 60 (>60) mL/min BUN/Creatinine Ratio 27.4 H (6-22) Glucose 96 (80-110) mg/dL Calcium 8.9 (8.4-10.2) mg/dL Ethyl Alcohol < 10 ( - 10) mg/dL Imaging Data CT scan - head: Radiologist's Impression: [address] [address] [address] Scan Report Signed Patient: Colton Fletcher MR#: [id number] : 1960 Acct:[id number] Age/Sex: 61 / M Date of Service: 10/12/21 Loc: ED Accession Number: [id number] ?? Procedure: CT head/brain wo con Ordering Provider: Dieter Frazier D.O. PROCEDURE:? CT HEAD/BRAIN WO CON ? INDICATIONS:? AMS ? TECHNIQUE:? Noncontrast 4.5 mm thick angled axial sections acquired from the foramen magnum to the vertex, with coronal and sagittal reformats.? For radiation dose reduction, the following was used:? automated exposure control, adjustment of mA and/or kV according to patient size.? ? COMPARISON:? None. ? FINDINGS:? Image quality:? Excellent.? ? CSF spaces:? Basal cisterns are patent.? No extra-axial fluid collections.? Ventricles are normal in size and shape.? ? Brain:? No midline shift.? No intracranial masses or hemorrhage.? Nathan-white matter interface is normal.? Multiple lacunar infarcts in the basal ganglia and head of the caudate.? Subcortical and periventricular white matter hypodensities are consistent with microvascular ischemic disease. ? Skull and face:? Calvarium and visualized facial bones are intact, without suspicious lesions.? ? Sinuses:? Visualized sinuses and mastoids are clear.? ? IMPRESSION:? 1. No acute intracranial abnormality. 2. Microvascular ischemic disease. 3. Lacunar infarcts in the basal ganglia and caudate heads.? ? ? Dictated by: Ronald Wilson M.D. on 10/12/2021 at 13:28 ? ? Approved by: Ronald Wilson M.D. on 10/12/2021 at 13:31?? ECG Data Attestation: I personally reviewed and interpreted this ECG as follows: Interpretation: Sinus rhythm Ventricular rate 81 Normal axis Normal QRS Normal QTC No ST T wave changes MDM Narrative Medical decision making narrative: Patient has known IV drug abuse. He states that he is ?unsure? if he use this morning before going to the methadone clinic. Since being here in the emergency department he is somewhat drowsy but is arousable. He is alert oriented to person and place. He knows where he lives. Is little unsure as to why he is here. His labs are unremarkable. Head CT is unremarkable. After period of observation patient was able to ambulate. He became less drowsy. Tolerate oral intake. I do suspect that his symptoms today are related to your the methadone or the methadone in relation to illicit drug abuse prior to arrival. Will discharge home with return precautions and with a prescription for Narcan. He expressed understanding and agreement. Discharge Plan Departure Patient Disposition: Home Clinical Impression: Intoxication with opioids Instructions: DI for Opioid Use Disorder, Naloxone for Opiate Overdose - [facility] Activity Restrictions/Additional Instructions: *You have been diagnosed with opioid intoxication *What to do: Overdose of opiates can lead to *Continue to take medications as directed Narcan as needed *Follow up with your primary care provider in 2-3 days or call [phone] *Return to ER if you should have any new, worsening or concerning symptoms Prescriptions: No Action Metoprolol Succinate (#TOPROL XL) 100 mg tablet 100 mg PO Q DAY Qty: 0 trazodone 50 MG tablet 50 mg PO DAILY Qty: 0 Visit Report Forms: Patient Portal/API
--- NOTE | 2021-10-12 12:10 | DI.CT.S_ITS ---
PROCEDURE: CT HEAD/BRAIN WO CON INDICATIONS: AMS TECHNIQUE: Noncontrast 4.5 mm thick angled axial sections acquired from the foramen magnum to the vertex, with coronal and sagittal reformats. For radiation dose reduction, the following was used: automated exposure control, adjustment of mA and/or kV according to patient size. COMPARISON: None. FINDINGS: Image quality: Excellent. CSF spaces: Basal cisterns are patent. No extra-axial fluid collections. Ventricles are normal in size and shape. Brain: No midline shift. No intracranial masses or hemorrhage. Nathan-white matter interface is normal. Multiple lacunar infarcts in the basal ganglia and head of the caudate. Subcortical and periventricular white matter hypodensities are consistent with microvascular ischemic disease. Skull and face: Calvarium and visualized facial bones are intact, without suspicious lesions. Sinuses: Visualized sinuses and mastoids are clear. IMPRESSION: 1. No acute intracranial abnormality. 2. Microvascular ischemic disease. 3. Lacunar infarcts in the basal ganglia and caudate heads. Dictated by: Ronald Wilson M.D. on 10/12/2021 at 13:28 Approved by: Ronald Wilson M.D. on 10/12/2021 at 13:31
--- NOTE | 2021-10-12 12:25 | PC.NURSE ---
Pt has wounds and extensive scar tissue tracking both arms, attempted IV x2 unsuccessfully, Dr. Frazier notified, lab called for draw attempt.
[2021-10-12 12:42] LABS: Add Manual Diff / Slide Review NO; Basophils Absolute Auto 100 /uL (0-100); Basophils Percent Auto 0.8 % (0-2); Eosinophils Absolute Auto 200 /uL (0-450); Eosinophils Percent Auto 2.3 % (2-4); Hematocrit 37.2 % (41-53); Hemoglobin 12.6 g/dL (13.5-17.5); Lymphocytes Absolute Auto 1800 /uL (1100-4500); Lymphocytes Percent Auto 19.3 % (25-40); Mean Corpuscular HGB Conc 33.8 % (30-36); Mean Corpuscular Hemoglobin 27.5 PG (26-34); Mean Corpuscular Volume 81.5 fL (80-100); Monocytes Absolute Auto 1000 /uL (0-900); Monocytes Percent Auto 10.8 % (3-14); Neutrophils Absolute Auto 6200 /uL (1500-7000); Neutrophils Percent Auto 66.8 % (50-75); Platelet Count 352 X10^3/uL (150-400); Red Blood Cell Count 4.57 X10^6/uL (4.5-5.9); Red Cell Distribution Width 15.9 % (11.6-14.8); White Blood Cell Count 9.2 X10^3/uL (4.5-11.0)
[2021-10-12 12:55] LABS: BUN Creatinine Ratio 27.4 (6-22); Blood Urea Nitrogen 23 mg/dL (9-20); Calcium 8.9 mg/dL (8.4-10.2); Carbon Dioxide 27 mmol/L (22-32); Chloride 104 mmol/L (98-107); Estimated Glomerular Filt Rate > 60 mL/min (>60); Ethanol (ETOH) < 10 mg/dL; Glucose 96 mg/dL (80-110); HEMOLYSIS < 15 (0-50); Sodium 137 mmol/L (137-145)
--- NOTE | 2021-10-12 14:00 | PC.NURSE ---
Pt ambulated with stand by assist, gait steady. Pt is aaox3/3, breathing even and unlabored.
[2021-10-12] MEDS: NALOXONE 4 MG NASAL SPRAY MISC (14:39)
== END 2021-10-12 14:54 | disposition home or self-care (01) ==
PROVIDERS: Emergency Provider Emergency Medicine
DX: F11.929 Opioid use, unspecified with intoxication, unspecified (principal)
CPT/HCPCS: 36415; 70450; 80048; 80320; 85025; 93005; 99284; A9270

== ENCOUNTER 2022-11-16 23:47 | Emergency (ER) | payer OTHER, MEDICAID, SELFPAY ==
[2020-04-12 05:47] VITALS: BMI 31.8
[2022-11-17] VITALS (11 sets, daily range): BP systolic 131–170; BP diastolic 63–96; PULSE 76–86; RESP 18; TEMP 36.6; O2SAT 96–100; BMI 28.0
[2022-11-17 01:15] LABS: Add Manual Diff / Slide Review NO; Basophils Absolute Auto 100 /uL (0-100); Basophils Percent Auto 0.9 % (0-2); Eosinophils Absolute Auto 200 /uL (0-450); Eosinophils Percent Auto 1.8 % (2-4); Hematocrit 32.6 % (41-53); Lymphocytes Absolute Auto 3000 /uL (1100-4500); Lymphocytes Percent Auto 26.3 % (25-40); Mean Corpuscular HGB Conc 33.7 % (30-36); Mean Corpuscular Hemoglobin 26.7 PG (26-34); Mean Corpuscular Volume 79.1 fL (80-100); Monocytes Absolute Auto 1400 /uL (0-900); Monocytes Percent Auto 12.6 % (3-14); Neutrophils Absolute Auto 6600 /uL (1500-7000); Neutrophils Percent Auto 58.4 % (50-75); Platelet Count 350 X10^3/uL (150-400); Red Blood Cell Count 4.13 X10^6/uL (4.5-5.9); Red Cell Distribution Width 16.1 % (11.6-14.8); White Blood Cell Count 11.3 X10^3/uL (4.5-11.0)
[2022-11-17 01:20] LABS: Lactate (Lactic Acid) 1.4 mmol/L (0.7-2.1)
[2022-11-17 01:21] LABS: Alanine Aminotransferase 18 IU/L (<50); Albumin 3.7 g/dL (3.5-5.0); Alkaline Phosphatase 82 U/L (38-126); Aspartate Aminotransferase 23 IU/L (17-59); BUN Creatinine Ratio 25.4 (6-22); Bilirubin Total 0.3 mg/dL (0.2-1.3); Blood Urea Nitrogen 15 mg/dL (9-20); Calcium 9.1 mg/dL (8.4-10.2); Carbon Dioxide 27 mmol/L (22-32); Chloride 104 mmol/L (98-107); Estimated Glomerular Filt Rate > 60 mL/min (>60); Globulin 3.7 g/dL (1.7-4.1); Glucose 109 mg/dL (80-110); HEMOLYSIS < 15 (0-50); Sodium 139 mmol/L (137-145); Total Protein 7.4 g/dL (6.3-8.2)
[2022-11-17 01:36] LABS: Procalcitonin 0.09 ng/mL (<0.5)
--- NOTE | 2022-11-17 02:16 | DI.CT.S_ITS ---
PROCEDURE: CT UE RT W CON INDICATIONS: RT arm wound antecubital region secondary to IVDA. TECHNIQUE: After the administration of intravenous contrast, 3 mm axial sections acquired of the right upper extremity, with coronal and sagittal reformats. COMPARISON: None. FINDINGS: Image quality: Excellent. Bones: Age-appropriate generalized degenerative changes are seen, yet without focal lytic or blastic lesions to suggest osteomyelitis on these images. Soft tissues: Just proximal to the antecubital fossa, there is an irregular skin wound seen, with subcutaneous thickening. Thickening is seen along the fascial planes. There is potential involvement of the biceps musculature. No soft tissue gas can be seen. No focal fluid collection is seen to suggest abscess. IMPRESSION: Soft tissue wound, with potential involvement of the biceps musculature. No soft tissue gas is seen. No soft tissue abscess is seen. No findings of bony involvement can be seen to suggest osteomyelitis. Note: No significant discrepancy from the preliminary report. Dictated by: Kaushik Arguello M.D. on 11/17/2022 at 8:53 Approved by: Kaushik Arguello M.D. on 11/17/2022 at 8:55
[2022-11-17] MEDS: PIPERACILLIN/TAZO 4.5 GM in SODIUM CHLORIDE 0.9% 100 ML IV (02:35)
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
[2022-11-17] MEDS: VANCOMYCIN 1,250 MG/250 ML PIGGYBACK 250 MG IV (03:28)
== END 2022-11-17 05:16 | disposition home or self-care (01) ==
PROVIDERS: Emergency Provider Emergency Medicine
DX: S41.101A Unspecified open wound of right upper arm, initial encounter (principal)
CPT/HCPCS: 36415; 73201; 80053; 83605; 84145; 85025; 87040; 87070; 87075; 87077; 87147; 87186; 87205; 96365; 96367; 99284; J2543; Q9967